=== PATIENT | female | born 1965 | race Caucasian/White ===

== ENCOUNTER → 2017-07-20 | Day surgery (SDC) | payer OTHER ==
[~2017-07-20] VITALS: Ht 165.1 cm; Wt 60.0 kg
[~2017-07-20] MED LIST: FENTANYL CITRATE INJ 50 MCG/1 ML 2 ML VIAL ONE; LIDOCAINE HCL 2% 2 ML VIAL (20MG/ML) ONE; ONDANSETRON INJ 2 MG/ML 2 ML VIAL ONE; PATIENT'S ALLERGY INFO NEEDS ENTERED SCH; PROPOFOL IV EMULSION 10 MG/ML 20 ML VIAL IV ONE; PRT/20 PO; SODIUM CHLORIDE 0.9% 500ML 500 ML IV ONE; SUCR1TAB29 PO
[2017-07-20 13:30] VITALS: Ht 165.1 cm; Wt 60.0 kg
[2017-07-20 13:44] VITALS: TEMP 36.9
--- NOTE | 2017-07-20 13:56 | Endo History and Physical ---
History & Physical Date of Service: Jul 20, 2017. Chief Complaint: Reflux Referring Physician: Ivis History of Present Illness 52 yo CF who presents for EGD secondary to GERD. Past Surgical History Hx Cardiac Surgery: No Hx Internal Defibrillator: No Hx Pacemaker: No Hx Abdominal Surgery: No Hx of Implantable Prosthesis: No Hx Post-Op Nausea and Vomiting: No Hx Cancer Surgery: No Hx Thoracic Surgery: No Hx Orthopedic: No Hx Urinary Tract Surgery: No Family History None Social History Smoking Status: Former Smoker Hx Substance Use: No Hx Alcohol Use: No Vital Signs Weight (Kilograms): 60 Height (Feet): 5 Height (Inches): 5 Physical Exam General Appearance: WD/WN, no apparent distress Respiratory/Chest: Auscultation: breath sounds normal Cardiovascular: Heart Auscultation: RRR Abdomen: Bowel Sounds: normal Inspection & Palpation: soft, non-distended, no tenderness, guarding & rebound Assessment and Plan Assessment: 52 yo CF who presents for EGD secondary to GERD. Plan: Proceed with EGD.
--- NOTE | 2017-07-20 14:35 | Discharge Instructions ---
Endoscopy Patient Instructions Date / Procedure(s) Performed Jul 20, 2017. EGD Allergy Information Coded Allergies: No Known Allergies (Unverified , 07/20/17) Discharge Date / Findings Jul 20, 2017. Severe Pyloric stenosis Severe Reflux esophagitis Medication Instructions OK to resume all medications today as prescribed Reported Home Medications Medications Dose Route/Sig Max Daily Dose Days Date Category Carafate (Sucralfate) 1 Gm Tab 1 Tab PO QID 30 07/20/17 Reported Protonix (Pantoprazole Sodium) 20 Mg Tab 20 Mg PO DAILY PRN 07/20/17 Reported Provider Instructions Activity Restrictions - No exercising or heavy lifting for 24 hours. - Do not drink alcohol the day of the procedure. - Do not drive a car or operate machinery until the day after the procedure. - Do not make any important decisions or sign important papers in 24 hours after the procedure. Following Day: - Return to full activity which may include returning to work/school. Diet Start your diet with liquids and light foods (jello, soup, juice, toast). Then eat your usual diet if not nauseated. Treatment For Common After Affects For mild abdominal pain, bloating, or excessive gas: - Rest - Eat lightly - Lie on right side Follow-Up Information Follow-up with Ivis as scheduled Anesthesia Information What You Should Know You have had a procedure that required some medicine to reduce anxiety and discomfort. This treatment is called moderate sedation. After receiving the treatment, you may be sleepy, but you will be able to breathe on your own. The effects of the treatment may last for several hours. Follow these instructions along with Activity/Diet recommendations noted above: * Do NOT do anything where dizziness or clumsiness would be dangerous. * Rest quietly at home today, then you can be up and about tomorrow. * Have a responsible person stay with you the rest of today. * You may have had an I.V. today. If so, you may take the dressing off later today. Recommendations Call your doctor if: * Trouble breathing * Continuous vomiting for more than 24 hours * Temperature above 101 degrees * Severe abdominal pain or bloating * Pain not relieved by pain medicine ordered * There is increased drainage or redness from any incision * A large amount of rectal bleeding greater than 2-3 tablespoons. (If you had a polyp/s removed or have hemorrhoids, a small amount of blood - from the rectum is to be expected.) * You have any unanswered questions or concerns. IN THE EVENT OF A SERIOUS EMERGENCY, GO TO THE NEAREST EMERGENCY ROOM Your discharge instructions were prepared by provider Omega Wise. Patient Instructions Signature Page Blanche Padilla Patient (or Guardian) Signature/Date: I have read and understand the instructions given to me by my caregivers. Caregiver/RN/Doctor Signature/Date: The above-named patient and/or guardian has received patient instructions on this date. + Original Patient Signature Page (only) stays with chart. Please make copy for patient.
--- NOTE | 2017-07-20 14:43 | GI REPORT ---
Procedure Date: 07/20/2017 2:16 PM Procedure: Upper GI endoscopy Indications: Gastro-esophageal reflux disease Medicines: Monitored Anesthesia Care Complications: No immediate complications. Estimated Blood Loss: Estimated blood loss: none. Procedure: Pre-Anesthesia Assessment: - Prior to the procedure, a History and Physical was performed, and patient medications and allergies were reviewed. The patient's tolerance of previous anesthesia was also reviewed. The risks and benefits of the procedure and the sedation options and risks were discussed with the patient. All questions were answered, and informed consent was obtained. Prior Anticoagulants: The patient has taken no previous anticoagulant or antiplatelet agents. ASA Grade Assessment: II - A patient with mild systemic disease. After reviewing the risks and benefits, the patient was deemed in satisfactory condition to undergo the procedure. After obtaining informed consent, the endoscope was passed under direct vision. Throughout the procedure, the patient's blood pressure, pulse, and oxygen saturations were monitored continuously. The scope was introduced through the mouth, and advanced to the second part of duodenum. The upper GI endoscopy was accomplished without difficulty. The patient tolerated the procedure well. Findings: LA Grade D (one or more mucosal breaks involving at least 75% of esophageal circumference) esophagitis with bleeding was found. A medium amount of food (residue) was found on the greater curvature of the stomach. A benign-appearing, intrinsic severe stenosis was found at the pylorus. This was non-traversed. Impression: - LA Grade D reflux esophagitis. - A medium amount of food (residue) in the stomach. - Gastric stenosis was found at the pylorus. - No specimens collected. Recommendation: - Clear liquid diet. - Continue present medications. - Perform a CT scan (computed tomography) of abdomen with contrast and pelvis with contrast tomorrow. - Repeat upper endoscopy for retreatment. - Return to primary care physician as previously scheduled. Omega Wise DO 07/20/2017 2:42:33 PM This report has been signed electronically. Note Initiated On: 07/20/2017 2:16 PM I attest to the content of the Intraoperative Record and orders documented therein, exceptions below
[2017-07-20 15:11] VITALS: BP 113/70; PULSE 64; O2SAT 97
--- NOTE | 2017-07-20 15:11 | Anesthesiology Progress Note ---
Anesthesia Post Op Note Date & Time Jul 20, 2017 at 15:11 Vital Signs Pain Intensity: 0 Vital Signs Past 12 Hours Date Time Temp Pulse Resp B/P (MAP) Pulse Ox O2 Delivery O2 Flow Rate FiO2 07/20/17 14:58 65 18 93/67 (76) 99 Room Air 07/20/17 14:43 84 18 112/65 (81) 98 Room Air 07/20/17 13:44 36.9 68 18 109/61 (77) 97 Room Air Notes Mental Status: alert / awake / arousable, participated in evaluation Pt Amnestic to Procedure: Yes Nausea / Vomiting: adequately controlled Pain: adequately controlled Airway Patency, RR, SpO2: stable & adequate BP & HR: stable & adequate Hydration State: stable & adequate Anesthetic Complications: no major complications apparent
== END | disposition home or self-care (01) ==
LOC: C.GI 12:47 → UNMERGE 12:47 → MERGE 12:47
PROVIDERS: ATTEND Internal Medicine
DX: K21.0 Gastro-esophageal reflux disease with esophagitis (principal); K31.1 Adult hypertrophic pyloric stenosis; Z87.891 Personal history of nicotine dependence

== ENCOUNTER → 2017-07-21 | Outpatient (CLI) | payer OTHER ==
[~2017-07-21] MED LIST changes: -FENTANYL CITRATE INJ 50 MCG/1 ML 2 ML VIAL ONE; -LIDOCAINE HCL 2% 2 ML VIAL (20MG/ML) ONE; -ONDANSETRON INJ 2 MG/ML 2 ML VIAL ONE; +OPTIRAY 320 IV PRN; +PANT40TA PO; -PATIENT'S ALLERGY INFO NEEDS ENTERED SCH; -PROPOFOL IV EMULSION 10 MG/ML 20 ML VIAL IV ONE; +RANI150T85 PO; -SODIUM CHLORIDE 0.9% 500ML 500 ML IV ONE
--- NOTE | 2017-07-21 15:03 | DIAGNOSTIC IMAGING REPORT ---
CT ABD/PELVIS IV AND ORAL CONT CLINICAL HISTORY: Reflux, vomiting, pyloric stenosis. Nausea. Abnormal EGD. COMPARISON STUDY: None. TECHNIQUE: Following the IV administration of 119 mL of Optiray-320, CT scan of the abdomen and pelvis was performed from the lung bases to the proximal femurs. Images are reviewed in the axial, sagittal, and coronal planes. IV contrast was administered without complication. A dose lowering technique was utilized adhering to the principles of ALARA. CT DOSE: 417.11 mGycm FINDINGS: Lower chest: There is a trace left pleural effusion. Liver: The contrast-enhanced liver is normal in size, contour, and attenuation. There is no intrahepatic biliary ductal dilatation. The hepatic veins and portal veins are patent. Gallbladder: Unremarkable. Spleen: Normal in size and attenuation. Pancreas: Unremarkable. Adrenal glands: Unremarkable. Kidneys: There is symmetric renal cortical enhancement. The kidneys are normal in size without hydronephrosis. Bowel: There are no transition zones indicate bowel obstruction. There is no acute diverticulitis. The appendix is not visualized with certainty. There are no findings to indicate acute appendicitis. There is a debris-filled stomach. There is wall thickening involving the gastric antrum and pyloris. The second and third portions of the duodenum are unremarkable in appearance. Peritoneum: There is no intraperitoneal free air or abdominal ascites. Vasculature: The abdominal aorta is normal in course and caliber. Adenopathy: None. Pelvic viscera: The bladder, and pelvic viscera are unremarkable. Skeletal structures: No destructive osseous lesions are seen. IMPRESSION: 1. Wall thickening involving the antrum by pylorus 2. Debris-filled stomach. This may indicate delayed gastric emptying or an element of gastric outlet obstruction 3. No evidence of small bowel or colonic obstruction 4. No evidence of free air 5. No evidence of adenopathy Electronically signed by: David Valiente M.D. 07/21/2017 3:01 PM Dictated Date/Time: 07/21/2017 2:53 PM
== END | disposition home or self-care (01) ==
LOC: MERGE 12:40 → C.CTS 14:04
PROVIDERS: ATTEND Internal Medicine
DX: K21.9 Gastro-esophageal reflux disease without esophagitis (principal); K31.1 Adult hypertrophic pyloric stenosis; R11.10 Vomiting, unspecified; R19.8 Other specified symptoms and signs involving the digestive system and abdomen

== ENCOUNTER 2017-07-22 08:57 | Day surgery (SDC) | payer OTHER ==
[~2017-07-22] VITALS: Ht 165.1 cm; Wt 60.0 kg
[~2017-07-22 08:57] MED LIST changes: +ATROPINE SULFATE 0.1 MG/ML 5ML SYR IV PRN; +EpHEDrine SULFATE INJ 50 MG/ML AMP IV PRN; +FENTANYL CITRATE INJ 50 MCG/1 ML 2 ML VIAL IV PRN; +ONDANSETRON INJ 2 MG/ML 2 ML VIAL IV PRN; -OPTIRAY 320 IV PRN; -PANT40TA PO; +PROMETHAZINE HCL INJ 12.5 MG in SODIUM CHLORIDE 0.9% 50ML 50 ML IV PRN; -RANI150T85 PO
[2017-07-22 09:10] VITALS: BP 110/57; PULSE 64; TEMP 36.7; O2SAT 100; Ht 165.1 cm; Wt 60.0 kg
[2017-07-22] MEDS ORDERED: NURSING VERBAL MED ORDER ONE (10:00)
[2017-07-22] MEDS ORDERED: LACTATED RINGER'S 1000ML 1,000 ML IV SCH (10:30)
[2017-07-22] MEDS ORDERED: SODIUM CHLORIDE 0.9% 500ML 500 ML IV ONE (10:37)
--- NOTE | 2017-07-22 10:37 | Endo History and Physical ---
History & Physical Date of Service: Jul 22, 2017. Chief Complaint: Abnormal CT scan of the Abdomen Pyloric stenosis Referring Physician: Dr. Langston History of Present Illness 52 yo CF who presents for EGD secondary to abnormal CT scan of the abdomen and pyloric stenosis. Past Surgical History Hx Cardiac Surgery: No Hx Internal Defibrillator: No Hx Pacemaker: No Hx Abdominal Surgery: Yes (appendectomy and tubal) Hx Post-Op Nausea and Vomiting: No Hx Cancer Surgery: No Hx Thoracic Surgery: No Hx Orthopedic: No Hx Urinary Tract Surgery: No Social History Smoking Status: Former Smoker Hx Substance Use: No Hx Alcohol Use: No Allergies Coded Allergies: No Known Allergies (Unverified , 07/22/17) Current Medications Reported Home Medications Medications Dose Route/Sig Max Daily Dose Days Date Category Carafate (Sucralfate) 1 Gm Tab 1 Tab PO QID 30 07/20/17 Reported Protonix (Pantoprazole Sodium) 20 Mg Tab 20 Mg PO DAILY PRN 07/20/17 Reported Vital Signs Weight (Kilograms): 60 Height (Feet): 5 Height (Inches): 5 Date Time Temp Pulse Resp B/P (MAP) Pulse Ox O2 Delivery O2 Flow Rate FiO2 07/22/17 09:10 36.7 64 18 110/57 (74) 100 Room Air Physical Exam General Appearance: WD/WN, no apparent distress Respiratory/Chest: Auscultation: breath sounds normal Cardiovascular: Heart Auscultation: RRR Abdomen: Bowel Sounds: normal Inspection & Palpation: soft, non-distended, no tenderness, guarding & rebound Assessment and Plan Assessment: 52 yo CF who presents for EGD secondary to abnormal CT scan of the abdomen and pyloric stenosis found on EGD 07/20/2017. Plan: Proceed with EGD.
[2017-07-22] MEDS ORDERED: ONDANSETRON INJ 2 MG/ML 2 ML VIAL ONE (10:38)
[2017-07-22] MEDS ORDERED: PROPOFOL IV EMULSION 10 MG/ML 20 ML VIAL IV ONE (10:38)
[2017-07-22] MEDS ORDERED: MIDAZOLAM HCL 1 MG/ML 2ML VIAL ONE (10:38)
[2017-07-22] MEDS ORDERED: ROCURONIUM BROMIDE 10 MG/ML 5 ML VIAL IV ONE (10:38)
[2017-07-22] MEDS ORDERED: FENTANYL CITRATE INJ 50 MCG/1 ML 2 ML VIAL ONE (10:38)
[2017-07-22] MEDS ORDERED: LIDOCAINE HCL 2% 2 ML VIAL (20MG/ML) ONE (10:38)
[2017-07-22] MEDS ORDERED: SUCCINYLCHOLINE CHLORIDE 20 MG/ML 10 ML VIAL IV ONE (10:38)
[2017-07-22] MEDS ORDERED: FLUMAZENIL 0.1 MG/1 ML 10 ML VIAL IV ONE (10:38)
[2017-07-22] MEDS ORDERED: PHENYLEPHRINE 100MCG/ML 5ML SYR ONE (11:23)
[2017-07-22] MEDS ORDERED: EpHEDrine SULFATE 50MG/5ML SYR ONE (11:37)
--- NOTE | 2017-07-22 11:42 | [facility] Post Operative Brief Note ---
Immediate Operative Summary Operative Date Jul 22, 2017. Pre-Operative Diagnosis Pyloric Stenosis Post-Operative Diagnosis Pyloric Stenosis, Severe esophogitis, Hiatal Hernia Procedure(s) Performed Esophagogastroduodenoscopy with pyloric dilation, Biopsies of the gastric antrum and duodenum Surgeon Dr. WiseFreight Engineer Surgeon(s) NONE Estimated Blood Loss 10 ml Findings 1) Severe esophagitis 2) Hiatal hernia-small 3) Gastritis with gastric antrum biopsies 4) Pyloric stenosis, s/p dilation to 13.5 mm 5) Duodenal biopsies Specimens per Endo staff Anesthesia General Complication(s) None Disposition Recovery Room / PACU
[2017-07-22] MEDS ORDERED: METOPROLOL TARTRATE 1 MG/ML VIAL ONE (11:58)
--- NOTE | 2017-07-22 12:16 | GI REPORT ---
Procedure Date: 07/22/2017 10:55 AM Procedure: Upper GI endoscopy Indications: For therapy of pyloric stenosis, Abnormal CT of the GI tract Medicines: Monitored Anesthesia Care Complications: No immediate complications. Estimated Blood Loss: Estimated blood loss: none. Procedure: Pre-Anesthesia Assessment: - Prior to the procedure, a History and Physical was performed, and patient medications and allergies were reviewed. The patient's tolerance of previous anesthesia was also reviewed. The risks and benefits of the procedure and the sedation options and risks were discussed with the patient. All questions were answered, and informed consent was obtained. Prior Anticoagulants: The patient has taken no previous anticoagulant or antiplatelet agents. ASA Grade Assessment: II - A patient with mild systemic disease. After reviewing the risks and benefits, the patient was deemed in satisfactory condition to undergo the procedure. After obtaining informed consent, the endoscope was passed under direct vision. Throughout the procedure, the patient's blood pressure, pulse, and oxygen saturations were monitored continuously. The Scope was introduced through the mouth, and advanced to the second part of duodenum. The upper GI endoscopy was accomplished without difficulty. The patient tolerated the procedure well. Findings: Severe esophagitis with bleeding was found. A small hiatal hernia was present. Localized moderate inflammation characterized by erythema was found in the gastric antrum. Biopsies were taken with a cold forceps for histology. A benign-appearing, intrinsic severe stenosis was found at the pylorus. This was non-traversed. A TTS dilator was passed through the scope. Dilation with an 8-9-10 mm, a 10-11-12 mm and a 12-13.5-15 mm pyloric balloon dilator was performed. The dilation site was examined and showed moderate improvement in luminal narrowing. The adult endoscope still would not pass through the pylorus, and the ultrathin scope was used to evaluate the duodenum. An acquired benign-appearing, intrinsic moderate stenosis was found in the duodenal bulb and was traversed. Biopsies for histology were taken with a cold forceps for evaluation of celiac disease. Impression: - Severe reflux esophagitis. - Small hiatal hernia. - Gastritis. Biopsied. - Gastric stenosis was found at the pylorus. Dilated. - Acquired duodenal stenosis. Biopsied. Recommendation: - Resume previous diet. - Continue present medications. - Await pathology results. - Repeat upper endoscopy in 2 weeks for retreatment. Omega Wise, DO 07/22/2017 12:15:33 PM This report has been signed electronically. Note Initiated On: 07/22/2017 10:55 AM I attest to the content of the Intraoperative Record and orders documented therein, exceptions below
--- NOTE | 2017-07-22 12:24 | Anesthesiology Progress Note ---
Anesthesia Post Op Note Date & Time Jul 22, 2017 at 12:23 Vital Signs Pain Intensity: 0 Vital Signs Past 12 Hours Date Time Temp Pulse Resp B/P (MAP) Pulse Ox O2 Delivery O2 Flow Rate FiO2 07/22/17 12:20 56 16 106/68 95 Room Air 07/22/17 12:10 60 16 103/65 98 Oxymask 7 07/22/17 11:52 36.1 87 16 100/71 98 Oxymask 7 07/22/17 09:10 36.7 64 18 110/57 (74) 100 Room Air Notes Mental Status: alert / awake / arousable, participated in evaluation Pt Amnestic to Procedure: Yes Nausea / Vomiting: adequately controlled Pain: adequately controlled Airway Patency, RR, SpO2: stable & adequate BP & HR: stable & adequate Hydration State: stable & adequate Anesthetic Complications: no major complications apparent
--- NOTE | 2017-07-22 12:38 | Discharge Instructions ---
Endoscopy Patient Instructions Date / Procedure(s) Performed Jul 22, 2017. EGD Allergy Information Coded Allergies: No Known Allergies (Unverified , 07/22/17) Discharge Date / Findings Jul 22, 2017. 1) Severe Reflux esophagitis 2) Hiatal hernia 3) Gastritis s/p biopsies 4) Pyloric stenosis s/p dilation 5) Duodenal biopsies Medication Instructions OK to resume all medications today as prescribed Reported Home Medications Medications Dose Route/Sig Max Daily Dose Days Date Category Carafate (Sucralfate) 1 Gm Tab 1 Tab PO QID 30 07/20/17 Reported Protonix (Pantoprazole Sodium) 20 Mg Tab 20 Mg PO DAILY PRN 07/20/17 Reported Provider Instructions Activity Restrictions - No exercising or heavy lifting for 24 hours. - Do not drink alcohol the day of the procedure. - Do not drive a car or operate machinery until the day after the procedure. - Do not make any important decisions or sign important papers in 24 hours after the procedure. Following Day: - Return to full activity which may include returning to work/school. Diet Start your diet with liquids and light foods (jello, soup, juice, toast). Then eat your usual diet if not nauseated. Treatment For Common After Affects For mild abdominal pain, bloating, or excessive gas: - Rest - Eat lightly - Lie on right side Follow-Up Information Follow-up in 2 weeks for repeat EGD with furhter dilation of pylorus. Anesthesia Information What You Should Know You have had a procedure that required some medicine to reduce anxiety and discomfort. This treatment is called moderate sedation. After receiving the treatment, you may be sleepy, but you will be able to breathe on your own. The effects of the treatment may last for several hours. Follow these instructions along with Activity/Diet recommendations noted above: * Do NOT do anything where dizziness or clumsiness would be dangerous. * Rest quietly at home today, then you can be up and about tomorrow. * Have a responsible person stay with you the rest of today. * You may have had an I.V. today. If so, you may take the dressing off later today. Recommendations Call your doctor if: * Trouble breathing * Continuous vomiting for more than 24 hours * Temperature above 101 degrees * Severe abdominal pain or bloating * Pain not relieved by pain medicine ordered * There is increased drainage or redness from any incision * A large amount of rectal bleeding greater than 2-3 tablespoons. (If you had a polyp/s removed or have hemorrhoids, a small amount of blood - from the rectum is to be expected.) * You have any unanswered questions or concerns. IN THE EVENT OF A SERIOUS EMERGENCY, GO TO THE NEAREST EMERGENCY ROOM Your discharge instructions were prepared by provider Omega Wise. Patient Instructions Signature Page Blanche Padilla Patient (or Guardian) Signature/Date: I have read and understand the instructions given to me by my caregivers. Caregiver/RN/Doctor Signature/Date: The above-named patient and/or guardian has received patient instructions on this date. + Original Patient Signature Page (only) stays with chart. Please make copy for patient.
[2017-07-22 12:40] VITALS: BP 109/63; PULSE 48; TEMP 36.5; O2SAT 95
[2017-07-22 13:10] VITALS: BP 117/56; PULSE 57; TEMP 36.3; O2SAT 93
[2017-07-26] MEDS ORDERED: PANT40TA PO (14:07)
[2017-07-26] MEDS ORDERED: RANI150T85 PO (14:07)
== END 2017-07-22 12:35 | disposition home or self-care (01) ==
LOC: C.ACU 08:57
PROVIDERS: ATTEND Internal Medicine
DX: K31.1 Adult hypertrophic pyloric stenosis (principal); K21.0 Gastro-esophageal reflux disease with esophagitis; K44.9 Diaphragmatic hernia without obstruction or gangrene; K29.70 Gastritis, unspecified, without bleeding; R93.5 Abnormal findings on diagnostic imaging of other abdominal regions, including retroperitoneum; R13.10 Dysphagia, unspecified; Z90.89 Acquired absence of other organs; Z98.51 Tubal ligation status; Z87.891 Personal history of nicotine dependence

== ENCOUNTER → 2017-08-09 | Day surgery (SDC) | payer OTHER ==
[2017-07-26 14:07] VITALS: Ht 165.1 cm; Wt 57.7 kg
[~2017-08-09] VITALS: Ht 165.1 cm; Wt 57.7 kg
[~2017-08-09] MED LIST changes: +AMX500 PO; -ATROPINE SULFATE 0.1 MG/ML 5ML SYR IV PRN; +CLAR500T38 PO; -EpHEDrine SULFATE INJ 50 MG/ML AMP IV PRN; -FENTANYL CITRATE INJ 50 MCG/1 ML 2 ML VIAL IV PRN; +LIDOCAINE HCL 2% 2 ML VIAL (20MG/ML) ONE; -ONDANSETRON INJ 2 MG/ML 2 ML VIAL IV PRN; +PANT40TA PO; -PROMETHAZINE HCL INJ 12.5 MG in SODIUM CHLORIDE 0.9% 50ML 50 ML IV PRN; +PROPOFOL IV EMULSION 10 MG/ML 20 ML VIAL IV ONE; -PRT/20 PO; +RANI150T85 PO; +SODIUM CHLORIDE 0.9% 500ML 500 ML IV ONE
[2017-08-09 10:00] VITALS: TEMP 36.2
--- NOTE | 2017-08-09 10:47 | Endo History and Physical ---
History & Physical Date of Service: Aug 09, 2017. Chief Complaint: pyloric stenosis Referring Physician: Dr. Enzo Langston History of Present Illness 52 yo CF who presents for EGD secondary to pyloric stenosis Past Surgical History Hx Cardiac Surgery: No Hx Internal Defibrillator: No Hx Pacemaker: No Hx Abdominal Surgery: Yes (APPY, TUBAL LIGATION) Hx of Implantable Prosthesis: No Hx Post-Op Nausea and Vomiting: No Hx Cancer Surgery: No Hx Thoracic Surgery: No Hx Orthopedic: No Hx Urinary Tract Surgery: No Family History None Social History Smoking Status: Former Smoker Hx Substance Use: No Hx Alcohol Use: No Allergies Coded Allergies: No Known Allergies (Verified , 08/09/17) Current Medications Reported Home Medications Medications Dose Route/Sig Max Daily Dose Days Date Category Biaxin (Clarithromycin) 500 Mg Tab 1 Tab PO BID 7 08/09/17 Reported Amoxicillin 500 Mg Cap 1,000 Mg PO BID 08/09/17 Reported Protonix (Pantoprazole Sodium) 40 Mg Tab 40 Mg PO BID 07/26/17 Reported Zantac (Ranitidine HCl) 150 Mg Tab 150 Mg PO DAILY PRN 07/26/17 Reported Carafate (Sucralfate) 1 Gm Tab 1 Tab PO QID 30 07/20/17 Reported Vital Signs Weight (Kilograms): 57.73 Height (Feet): 5 Height (Inches): 5 Date Time Temp Pulse Resp B/P (MAP) Pulse Ox O2 Delivery O2 Flow Rate FiO2 08/09/17 10:00 36.2 64 20 106/60 (75) 100 Room Air Physical Exam General Appearance: WD/WN, no apparent distress Respiratory/Chest: Auscultation: breath sounds normal Cardiovascular: Heart Auscultation: RRR Abdomen: Bowel Sounds: normal Inspection & Palpation: soft, non-distended, no tenderness, guarding & rebound Assessment and Plan Assessment: 52 yo CF who presents for EGD secondary to pyloric stenosis Plan: Proceed with EGD.
--- NOTE | 2017-08-09 11:14 | GI REPORT ---
Procedure Date: 08/09/2017 10:32 AM Procedure: Upper GI endoscopy Indications: Pyloric stenosis Medicines: Monitored Anesthesia Care Complications: No immediate complications. Estimated Blood Loss: Estimated blood loss: none. Procedure: Pre-Anesthesia Assessment: - Prior to the procedure, a History and Physical was performed, and patient medications and allergies were reviewed. The patient's tolerance of previous anesthesia was also reviewed. The risks and benefits of the procedure and the sedation options and risks were discussed with the patient. All questions were answered, and informed consent was obtained. Prior Anticoagulants: The patient has taken no previous anticoagulant or antiplatelet agents. ASA Grade Assessment: II - A patient with mild systemic disease. After reviewing the risks and benefits, the patient was deemed in satisfactory condition to undergo the procedure. After obtaining informed consent, the endoscope was passed under direct vision. Throughout the procedure, the patient's blood pressure, pulse, and oxygen saturations were monitored continuously. The scope was introduced through the mouth, with the intention of advancing to the duodenum. The scope was advanced to the pylorus before the procedure was aborted. Medications were given. The upper GI endoscopy was accomplished without difficulty. The patient tolerated the procedure fairly well. Findings: LA Grade D (one or more mucosal breaks involving at least 75% of esophageal circumference) esophagitis with no bleeding was found. A benign-appearing, intrinsic severe stenosis was found at the pylorus. This was non-traversed. A large amount of food (residue) was found on the greater curvature of the stomach. Impression: - LA Grade D reflux esophagitis. - Gastric stenosis was found at the pylorus. - A large amount of food (residue) in the stomach. - No specimens collected. Recommendation: - Full liquid diet. - Continue present medications. - Repeat upper endoscopy at appointment to be scheduled retained gastric contents. - Return to primary care physician as previously scheduled. Omega Wise DO 08/09/2017 11:14:07 AM This report has been signed electronically. Note Initiated On: 08/09/2017 10:32 AM I attest to the content of the Intraoperative Record and orders documented therein, exceptions below
--- NOTE | 2017-08-09 11:15 | Discharge Instructions ---
Endoscopy Patient Instructions Date / Procedure(s) Performed Aug 09, 2017. EGD Allergy Information Coded Allergies: No Known Allergies (Verified , 08/09/17) Discharge Date / Findings Aug 09, 2017. Severe pyloric stenosis Retained gastric contents Medication Instructions OK to resume all medications today as prescribed Reported Home Medications Medications Dose Route/Sig Max Daily Dose Days Date Category Biaxin (Clarithromycin) 500 Mg Tab 1 Tab PO BID 7 08/09/17 Reported Amoxicillin 500 Mg Cap 1,000 Mg PO BID 08/09/17 Reported Protonix (Pantoprazole Sodium) 40 Mg Tab 40 Mg PO BID 07/26/17 Reported Zantac (Ranitidine HCl) 150 Mg Tab 150 Mg PO DAILY PRN 07/26/17 Reported Carafate (Sucralfate) 1 Gm Tab 1 Tab PO QID 30 07/20/17 Reported Provider Instructions Activity Restrictions - No exercising or heavy lifting for 24 hours. - Do not drink alcohol the day of the procedure. - Do not drive a car or operate machinery until the day after the procedure. - Do not make any important decisions or sign important papers in 24 hours after the procedure. Following Day: - Return to full activity which may include returning to work/school. Diet Start your diet with liquids and light foods (jello, soup, juice, toast). Then advance to full liquid diet as tolerated. Treatment For Common After Affects For mild abdominal pain, bloating, or excessive gas: - Rest - Eat lightly - Lie on right side Follow-Up Information Follow-up with Dr. Enzo Langston as scheduled Anesthesia Information What You Should Know You have had a procedure that required some medicine to reduce anxiety and discomfort. This treatment is called moderate sedation. After receiving the treatment, you may be sleepy, but you will be able to breathe on your own. The effects of the treatment may last for several hours. Follow these instructions along with Activity/Diet recommendations noted above: * Do NOT do anything where dizziness or clumsiness would be dangerous. * Rest quietly at home today, then you can be up and about tomorrow. * Have a responsible person stay with you the rest of today. * You may have had an I.V. today. If so, you may take the dressing off later today. Recommendations Call your doctor if: * Trouble breathing * Continuous vomiting for more than 24 hours * Temperature above 101 degrees * Severe abdominal pain or bloating * Pain not relieved by pain medicine ordered * There is increased drainage or redness from any incision * A large amount of rectal bleeding greater than 2-3 tablespoons. (If you had a polyp/s removed or have hemorrhoids, a small amount of blood - from the rectum is to be expected.) * You have any unanswered questions or concerns. IN THE EVENT OF A SERIOUS EMERGENCY, GO TO THE NEAREST EMERGENCY ROOM Your discharge instructions were prepared by provider Omega Wise. Patient Instructions Signature Page Blanche Padilla Patient (or Guardian) Signature/Date: I have read and understand the instructions given to me by my caregivers. Caregiver/RN/Doctor Signature/Date: The above-named patient and/or guardian has received patient instructions on this date. + Original Patient Signature Page (only) stays with chart. Please make copy for patient.
[2017-08-09 11:42] VITALS: BP 106/56; PULSE 64; O2SAT 98
--- NOTE | 2017-08-09 13:01 | Anesthesiology Progress Note ---
Anesthesia Post Op Note Date & Time Aug 09, 2017 at 13:00 Vital Signs Pain Intensity: 0 Vital Signs Past 12 Hours Date Time Temp Pulse Resp B/P (MAP) Pulse Ox O2 Delivery O2 Flow Rate FiO2 08/09/17 11:42 64 16 106/56 (73) 98 Room Air 08/09/17 11:27 67 16 105/66 (79) 97 Room Air 08/09/17 11:12 66 16 98/57 (71) 96 Room Air 08/09/17 10:00 36.2 64 20 106/60 (75) 100 Room Air Notes Mental Status: alert / awake / arousable, participated in evaluation Pt Amnestic to Procedure: Yes Nausea / Vomiting: adequately controlled Pain: adequately controlled Airway Patency, RR, SpO2: stable & adequate BP & HR: stable & adequate Hydration State: stable & adequate Anesthetic Complications: no major complications apparent
== END | disposition home or self-care (01) ==
LOC: C.GI 09:29
PROVIDERS: ATTEND Internal Medicine
DX: Q40.0 Congenital hypertrophic pyloric stenosis (principal); K21.0 Gastro-esophageal reflux disease with esophagitis; Z90.49 Acquired absence of other specified parts of digestive tract; Z87.891 Personal history of nicotine dependence

== ENCOUNTER 2017-08-19 06:45 | Day surgery (SDC) | payer OTHER ==
[~2017-08-19] VITALS: Ht 165.1 cm; Wt 57.7 kg
[~2017-08-19 06:45] MED LIST changes: +LACTATED RINGER'S 1000ML 1,000 ML IV SCH; -LIDOCAINE HCL 2% 2 ML VIAL (20MG/ML) ONE; -PROPOFOL IV EMULSION 10 MG/ML 20 ML VIAL IV ONE; -SODIUM CHLORIDE 0.9% 500ML 500 ML IV ONE
[2017-08-19] MEDS ORDERED: LIDOCAINE HCL 2% 2 ML VIAL (20MG/ML) ONE (06:58)
[2017-08-19] MEDS ORDERED: EpHEDrine SULFATE INJ 50 MG/ML AMP ONE (06:58)
[2017-08-19] MEDS ORDERED: DEXAMETHASONE SOD INJ 4 MG/ML VIAL ONE (06:58)
[2017-08-19] MEDS ORDERED: GLYCOPYRROLATE INJ 0.2 MG/ML VIAL ONE (06:58)
[2017-08-19] MEDS ORDERED: ONDANSETRON INJ 2 MG/ML 2 ML VIAL ONE (06:58)
[2017-08-19] MEDS ORDERED: PHENYLEPHRINE HCL INJ 10 MG/ML VIAL ONE (06:58)
[2017-08-19] MEDS ORDERED: NEOSTIGMINE METHYLSULFATE 5 MG/5 ML SYR ONE (06:58)
[2017-08-19] MEDS ORDERED: SUCCINYLCHOLINE CHLORIDE 20 MG/ML 10 ML VIAL IV ONE (06:58)
[2017-08-19] MEDS ORDERED: PROPOFOL IV EMULSION 10 MG/ML 20 ML VIAL IV ONE (06:58)
[2017-08-19] MEDS ORDERED: FENTANYL CITRATE INJ 50 MCG/1 ML 2 ML VIAL ONE (06:59)
[2017-08-19] MEDS ORDERED: MIDAZOLAM HCL 1 MG/ML 2ML VIAL ONE (06:59)
[2017-08-19 07:01] VITALS: BP 115/67; PULSE 70; TEMP 36.6; O2SAT 96; Ht 165.1 cm; Wt 57.7 kg
--- NOTE | 2017-08-19 07:29 | Endo History and Physical ---
History & Physical Date of Service: Aug 19, 2017. Chief Complaint: Pyloric stenosis, GERD, Vomiting Referring Physician: Dr. Langston History of Present Illness 52 yo CF who presents for EGD with dilation of pyloric stenosis. Her symptoms began approximately 3 months ago with GERD and intermittent vomiting. They subsequently progressed and she had vomiting following each meal, and a greater than 20 lb. weight loss. She underwent EGD on 07/20, and had retained gastric contents secondary to pyloric stenosis. Repeat EGD on 07/22 revealed severe pyloric stenosis, and she did undergo dilation of her pylorus. Biopsies of her gastric antrum revealed H. pylori. infection, and she completed a two week course of therapy. She returned for repeat EGD with dilation of her pylorus on 08/09, however, she had a large amount of retained gastric contents. She was subsequently scheduled to undergo EGD with pyloric dilation in the OR today. She continues to complain of severe GERD, nausea, vomiting, and an additional 5 lb. weight loss. Past Medical History Gastrointestinal Disorder GERD Pyloric stenosis Weight loss, unintentional Vomiting Past Surgical History Hx Cardiac Surgery: No Hx Internal Defibrillator: No Hx Pacemaker: No Hx Abdominal Surgery: Yes (APPY, TUBAL LIGATION) Hx Post-Op Nausea and Vomiting: No Hx Cancer Surgery: No Hx Thoracic Surgery: No Hx Orthopedic: No Hx Urinary Tract Surgery: No Family History None Social History Smoking Status: Former Smoker Hx Substance Use: No Hx Alcohol Use: No Allergies Coded Allergies: No Known Allergies (Verified , 08/19/17) Current Medications Reported Home Medications Medications Dose Route/Sig Max Daily Dose Days Date Category Protonix (Pantoprazole Sodium) 40 Mg Tab 40 Mg PO BID 07/26/17 Reported Zantac (Ranitidine HCl) 150 Mg Tab 150 Mg PO DAILY PRN 07/26/17 Reported Carafate (Sucralfate) 1 Gm Tab 1 Tab PO QID 30 07/20/17 Reported Vital Signs Weight (Kilograms): 57.7 Height (Feet): 5 Height (Inches): 5 Date Time Temp Pulse Resp B/P (MAP) Pulse Ox O2 Delivery O2 Flow Rate FiO2 08/19/17 07:01 36.6 70 18 115/67 (83) 96 Room Air Physical Exam General Appearance: no apparent distress, + thin Respiratory/Chest: Respiratory effort: no dyspnea, good air movement Auscultation: breath sounds normal, no wheezing Cardiovascular: Heart Auscultation: RRR Abdomen: Bowel Sounds: normal Inspection & Palpation: soft Liver: non-tender Hernia: none palpable Assessment and Plan Assessment: 52 yo CF who presents for EGD with dilation of pylorus secondary to pyloric stenosis, GERD, Vomiting and weight loss. Plan: Proceed with EGD and dilation of pylorus.
[2017-08-19] MEDS ORDERED: SODIUM CHLORIDE 0.9% 500ML 500 ML IV ONE (07:45)
--- NOTE | 2017-08-19 08:06 | [facility] Operative Report ---
Operative Report Operative Date Aug 19, 2017. Pre-Operative Diagnosis Pyloric Stenosis Post-Operative Diagnosis 1) Pyloris stenosis 2) Retained gastric contents Procedure(s) Performed 1) Dilation of pyloric stenosis 2) Gastric antrum biopsies Surgeon Dr. Duff Product Control And Logistics Analyst Surgeon(s) Elaine Hearn and Erin Cowan Estimated Blood Loss 10ml Findings Pyloric stenosis Retained gastric contents Specimens All specimens handled by endoscopy staff. Complication(s) None Disposition Recovery Room / PACU Indications Pyloric stenosis GERD Vomiting Weight loss Description of Procedure EGD with dilation of pyloric stenosis and gastric antrum biopsies I attest to the content of the Intraoperative Record and any orders documented therein. Any exceptions are noted below.
[2017-08-19] MEDS ORDERED: PHENYLEPHRINE 100MCG/ML 5ML SYR ONE (08:13)
--- NOTE | 2017-08-19 08:17 | Discharge Instructions ---
Endoscopy Patient Instructions Date / Procedure(s) Performed Aug 19, 2017. EGD Allergy Information Coded Allergies: No Known Allergies (Verified , 08/19/17) Discharge Date / Findings Aug 19, 2017. Pyloric stenosis s/p dilation Retained gastric contents Biopsies from gastric antrum Medication Instructions OK to resume all medications today as prescribed Reported Home Medications Medications Dose Route/Sig Max Daily Dose Days Date Category Protonix (Pantoprazole Sodium) 40 Mg Tab 40 Mg PO BID 07/26/17 Reported Zantac (Ranitidine HCl) 150 Mg Tab 150 Mg PO DAILY PRN 07/26/17 Reported Carafate (Sucralfate) 1 Gm Tab 1 Tab PO QID 30 07/20/17 Reported Provider Instructions Activity Restrictions - No exercising or heavy lifting for 24 hours. - Do not drink alcohol the day of the procedure. - Do not drive a car or operate machinery until the day after the procedure. - Do not make any important decisions or sign important papers in 24 hours after the procedure. Following Day: - Return to full activity which may include returning to work/school. Diet Start your diet with liquids and light foods (jello, soup, juice, toast). Then eat your usual diet if not nauseated. Treatment For Common After Affects For mild abdominal pain, bloating, or excessive gas: - Rest - Eat lightly - Lie on right side Follow-Up Information Follow-up with as scheduled Anesthesia Information What You Should Know You have had a procedure that required some medicine to reduce anxiety and discomfort. This treatment is called moderate sedation. After receiving the treatment, you may be sleepy, but you will be able to breathe on your own. The effects of the treatment may last for several hours. Follow these instructions along with Activity/Diet recommendations noted above: * Do NOT do anything where dizziness or clumsiness would be dangerous. * Rest quietly at home today, then you can be up and about tomorrow. * Have a responsible person stay with you the rest of today. * You may have had an I.V. today. If so, you may take the dressing off later today. Recommendations Call your doctor if: * Trouble breathing * Continuous vomiting for more than 24 hours * Temperature above 101 degrees * Severe abdominal pain or bloating * Pain not relieved by pain medicine ordered * There is increased drainage or redness from any incision * A large amount of rectal bleeding greater than 2-3 tablespoons. (If you had a polyp/s removed or have hemorrhoids, a small amount of blood - from the rectum is to be expected.) * You have any unanswered questions or concerns. IN THE EVENT OF A SERIOUS EMERGENCY, GO TO THE NEAREST EMERGENCY ROOM Your discharge instructions were prepared by provider Omega Wise. Patient Instructions Signature Page Blanche Padilla Patient (or Guardian) Signature/Date: I have read and understand the instructions given to me by my caregivers. Caregiver/RN/Doctor Signature/Date: The above-named patient and/or guardian has received patient instructions on this date. + Original Patient Signature Page (only) stays with chart. Please make copy for patient.
--- NOTE | 2017-08-19 08:32 | GI REPORT ---
Procedure Date: 08/19/2017 7:35 AM Procedure: Upper GI endoscopy Indications: Gastro-esophageal reflux disease, For therapy of pyloric stenosis, Vomiting, Weight loss Medicines: General Anesthesia Complications: No immediate complications. Estimated Blood Loss: Estimated blood loss: none. Procedure: Pre-Anesthesia Assessment: - Prior to the procedure, a History and Physical was performed, and patient medications and allergies were reviewed. The patient's tolerance of previous anesthesia was also reviewed. The risks and benefits of the procedure and the sedation options and risks were discussed with the patient. All questions were answered, and informed consent was obtained. Prior Anticoagulants: The patient has taken no previous anticoagulant or antiplatelet agents. ASA Grade Assessment: II - A patient with mild systemic disease. After reviewing the risks and benefits, the patient was deemed in satisfactory condition to undergo the procedure. After obtaining informed consent, the endoscope was passed under direct vision. Throughout the procedure, the patient's blood pressure, pulse, and oxygen saturations were monitored continuously. The Scope was introduced through the mouth, and advanced to the second part of duodenum. The upper GI endoscopy was accomplished without difficulty. The patient tolerated the procedure well. Findings: LA Grade D (one or more mucosal breaks involving at least 75% of esophageal circumference) esophagitis with no bleeding was found. Localized mildly erythematous mucosa without bleeding was found in the gastric antrum. Biopsies were taken with a cold forceps for histology. A medium amount of food (residue) was found in the gastric fundus and on the greater curvature of the stomach. A benign-appearing, intrinsic severe stenosis was found at the pylorus. This was traversed following dilation. A TTS dilator was passed through the scope. Dilation with a 10-11-12 mm and a 12-13.5-15 mm pyloric balloon dilator was performed. The dilation site was examined and showed moderate improvement in luminal narrowing. The examined duodenum was normal. Impression: - LA Grade D reflux esophagitis. - Erythematous mucosa in the antrum. Biopsied. - A medium amount of food (residue) in the stomach. - Gastric stenosis was found at the pylorus. Dilated. - Normal examined duodenum. Recommendation: - Resume previous diet. - Continue present medications. - Await pathology results. - Repeat upper endoscopy in 2 weeks for retreatment. - Return to GI clinic as previously scheduled. Omega Wise, 08/19/2017 8:32:20 AM This report has been signed electronically. Note Initiated On: 08/19/2017 7:35 AM I attest to the content of the Intraoperative Record and orders documented therein, exceptions below
--- NOTE | 2017-08-19 08:42 | Anesthesiology Progress Note ---
Anesthesia Post Op Note Date & Time Aug 19, 2017 at 08:42 Vital Signs Pain Intensity: 0 Vital Signs Past 12 Hours Date Time Temp Pulse Resp B/P (MAP) Pulse Ox O2 Delivery O2 Flow Rate FiO2 08/19/17 08:35 71 16 98/54 98 Room Air 08/19/17 08:25 76 18 105/70 100 Oxymask 10 08/19/17 08:17 73 20 92/46 97 Oxymask 10 08/19/17 08:15 36.6 76 18 86/48 96 Oxymask 10 08/19/17 07:01 36.6 70 18 115/67 (83) 96 Room Air Notes Mental Status: alert / awake / arousable, participated in evaluation Pt Amnestic to Procedure: Yes Nausea / Vomiting: adequately controlled Pain: adequately controlled Airway Patency, RR, SpO2: stable & adequate BP & HR: stable & adequate Hydration State: stable & adequate Anesthetic Complications: no major complications apparent
[2017-08-19] MEDS ORDERED: EpHEDrine SULFATE INJ 50 MG/ML AMP IV PRN (08:45)
[2017-08-19] MEDS ORDERED: ATROPINE SULFATE 0.1 MG/ML 5ML SYR IV PRN (08:45)
[2017-08-19] MEDS ORDERED: ONDANSETRON INJ 2 MG/ML 2 ML VIAL IV PRN (08:45)
[2017-08-19 09:00] VITALS: BP 102/53; PULSE 64; TEMP 36.5; O2SAT 94
[2017-08-19 09:30] VITALS: BP 104/52; PULSE 59; TEMP 36.5; O2SAT 97
== END 2017-08-19 09:38 | disposition home or self-care (01) ==
LOC: C.ACU 06:45
PROVIDERS: ATTEND Internal Medicine
DX: K31.1 Adult hypertrophic pyloric stenosis (principal); K21.0 Gastro-esophageal reflux disease with esophagitis; R11.10 Vomiting, unspecified; Z90.89 Acquired absence of other organs; Z98.51 Tubal ligation status; Z87.891 Personal history of nicotine dependence

== ENCOUNTER → 2017-09-05 | Day surgery (SDC) | payer OTHER ==
[2017-09-02 12:50] VITALS: BMI 21.0
[~2017-09-05] VITALS: Ht 165.1 cm; Wt 57.7 kg
[~2017-09-05] MED LIST changes: -AMX500 PO; +ATROPINE SULFATE 0.1 MG/ML 5ML SYR IV PRN; -CLAR500T38 PO; +DEXAMETHASONE SOD INJ 4 MG/ML VIAL ONE; +EpHEDrine SULFATE INJ 50 MG/ML AMP IV PRN; +FENTANYL CITRATE INJ 50 MCG/1 ML 2 ML VIAL IV PRN; +FENTANYL CITRATE INJ 50 MCG/1 ML 2 ML VIAL ONE; -LACTATED RINGER'S 1000ML 1,000 ML IV SCH; +LIDOCAINE HCL 2% 2 ML VIAL (20MG/ML) ONE; +ONDANSETRON INJ 2 MG/ML 2 ML VIAL IV PRN; +ONDANSETRON INJ 2 MG/ML 2 ML VIAL ONE; +PROPOFOL IV EMULSION 10 MG/ML 20 ML VIAL IV ONE; +ROCURONIUM BROMIDE 10 MG/ML 5 ML VIAL IV ONE; +SODIUM CHLORIDE 0.9% 500ML 500 ML IV ONE; +SUCCINYLCHOLINE CHLORIDE 20 MG/ML 10 ML VIAL IV ONE
[2017-09-05 05:52] VITALS: BP 109/55; PULSE 63; TEMP 36.8; O2SAT 98; Ht 165.1 cm; Wt 57.7 kg
--- NOTE | 2017-09-05 07:25 | Endo History and Physical ---
History & Physical Date of Service: Sep 05, 2017. Chief Complaint: Pyloric stenosis secondary to PUD for Dilation Referring Physician: Dr. Langston History of Present Illness Patient presents for EGD secondary to pyloric stenosis secondary to PUD for dilation. This is her third pyloric dilation, and she does note considerable improvement following her last dilation. She has completed therapy for H. pylori, which was found on biopsy at time of her previous EGD. She states that she has not had any abdominal pain, and states that her GERD symptoms and nausea with vomiting have improved since her last EGD. She has no further complaints. Past Medical History Gastrointestinal Disorder PUD H. pylori infection GERD Pyloric stenosis Past Surgical History Hx Cardiac Surgery: No Hx Internal Defibrillator: No Hx Pacemaker: No Hx Abdominal Surgery: Yes (APPENDECTOMY, TUBAL LIGATION) Hx Post-Op Nausea and Vomiting: No Hx Cancer Surgery: No Hx Thoracic Surgery: No Hx Orthopedic: No Hx Urinary Tract Surgery: No Family History None Social History Smoking Status: Former Smoker Hx Substance Use: No Hx Alcohol Use: No Allergies Coded Allergies: No Known Allergies (Verified , 09/05/17) Current Medications Reported Home Medications Medications Dose Route/Sig Max Daily Dose Days Date Category Protonix (Pantoprazole Sodium) 40 Mg Tab 40 Mg PO BID 07/26/17 Reported Zantac (Ranitidine HCl) 150 Mg Tab 150 Mg PO DAILY PRN 07/26/17 Reported Carafate (Sucralfate) 1 Gm Tab 1 Tab PO QID 30 07/20/17 Reported Vital Signs Weight (Kilograms): 57.7 Height (Feet): 5 Height (Inches): 5 Date Time Temp Pulse Resp B/P (MAP) Pulse Ox O2 Delivery O2 Flow Rate FiO2 09/05/17 05:52 36.8 63 16 109/55 (73) 98 Room Air Review of Systems Respiratory: No cough, No sputum, No shortness of breath Cardiovascular: No chest pain Abdomen: No pain, No nausea, No vomiting, No diarrhea, No GI bleeding Physical Exam General Appearance: WD/WN, no apparent distress Respiratory/Chest: Auscultation: breath sounds normal Cardiovascular: Heart Auscultation: RRR Abdomen: Bowel Sounds: normal Inspection & Palpation: soft, non-distended, no tenderness, guarding & rebound Assessment and Plan Assessment: 52 yo CF who presents for EGD with dilation of pyloric stenosis. Plan: Proceed with EGD with dilation of pylorus.
--- NOTE | 2017-09-05 08:08 | GI REPORT ---
Procedure Date: 09/05/2017 7:30 AM Procedure: Upper GI endoscopy Indications: For therapy of pyloric stenosis Medicines: Monitored Anesthesia Care Complications: No immediate complications. Estimated Blood Loss: Estimated blood loss: none. Procedure: Pre-Anesthesia Assessment: - Prior to the procedure, a History and Physical was performed, and patient medications and allergies were reviewed. The patient's tolerance of previous anesthesia was also reviewed. The risks and benefits of the procedure and the sedation options and risks were discussed with the patient. All questions were answered, and informed consent was obtained. Prior Anticoagulants: The patient has taken no previous anticoagulant or antiplatelet agents. ASA Grade Assessment: II - A patient with mild systemic disease. After reviewing the risks and benefits, the patient was deemed in satisfactory condition to undergo the procedure. After obtaining informed consent, the endoscope was passed under direct vision. Throughout the procedure, the patient's blood pressure, pulse, and oxygen saturations were monitored continuously. The Scope was introduced through the mouth, and advanced to the second part of duodenum. The upper GI endoscopy was accomplished without difficulty. The patient tolerated the procedure well. Findings: Mildly severe esophagitis with no bleeding was found. A benign-appearing, intrinsic moderate stenosis was found at the pylorus. This was non-traversed. A TTS dilator was passed through the scope. Dilation with a 12-13.5-15 mm pyloric balloon dilator was performed. The dilation site was examined and showed moderate improvement in luminal narrowing. The pylorus was easily traversed following dilation. The examined duodenum was normal. Impression: - Mildly severe erosive esophagitis. - Gastric stenosis was found at the pylorus. Dilated. - Normal examined duodenum. - No specimens collected. Recommendation: - Resume previous diet. - Continue present medications. - Repeat upper endoscopy in 3 weeks for retreatment. - Return to GI office as previously scheduled. Omega Wise DO 09/05/2017 8:07:32 AM This report has been signed electronically. Note Initiated On: 09/05/2017 7:30 AM I attest to the content of the Intraoperative Record and orders documented therein, exceptions below
--- NOTE | 2017-09-05 08:29 | Anesthesiology Progress Note ---
Anesthesia Post Op Note Date & Time Sep 05, 2017 at 08:29 Vital Signs Pain Intensity: 0 Vital Signs Past 12 Hours Date Time Temp Pulse Resp B/P (MAP) Pulse Ox O2 Delivery O2 Flow Rate FiO2 09/05/17 08:20 69 18 102/62 100 Nasal Cannula 2 09/05/17 08:10 36.0 91 14 108/72 99 Nasal Cannula 2 09/05/17 05:52 36.8 63 16 109/55 (73) 98 Room Air Notes Mental Status: alert / awake / arousable, participated in evaluation Pt Amnestic to Procedure: Yes Nausea / Vomiting: adequately controlled Pain: adequately controlled Airway Patency, RR, SpO2: stable & adequate BP & HR: stable & adequate Hydration State: stable & adequate Anesthetic Complications: no major complications apparent
--- NOTE | 2017-09-05 08:34 | Discharge Instructions ---
Endoscopy Patient Instructions Date / Procedure(s) Performed Sep 05, 2017. Colonoscopy Allergy Information Coded Allergies: No Known Allergies (Verified , 09/05/17) Discharge Date / Findings Sep 05, 2017. Pyloric stenosis s/p dilation Esophagitis Medication Instructions OK to resume all medications today as prescribed Reported Home Medications Medications Dose Route/Sig Max Daily Dose Days Date Category Protonix (Pantoprazole Sodium) 40 Mg Tab 40 Mg PO BID 07/26/17 Reported Zantac (Ranitidine HCl) 150 Mg Tab 150 Mg PO DAILY PRN 07/26/17 Reported Carafate (Sucralfate) 1 Gm Tab 1 Tab PO QID 30 07/20/17 Reported Provider Instructions Activity Restrictions - No exercising or heavy lifting for 24 hours. - Do not drink alcohol the day of the procedure. - Do not drive a car or operate machinery until the day after the procedure. - Do not make any important decisions or sign important papers in 24 hours after the procedure. Following Day: - Return to full activity which may include returning to work/school. Diet Start your diet with liquids and light foods (jello, soup, juice, toast). Then eat your usual diet if not nauseated. Treatment For Common After Affects For mild abdominal pain, bloating, or excessive gas: - Rest - Eat lightly - Lie on right side Follow-Up Information Follow-up with as scheduled Anesthesia Information What You Should Know You have had a procedure that required some medicine to reduce anxiety and discomfort. This treatment is called moderate sedation. After receiving the treatment, you may be sleepy, but you will be able to breathe on your own. The effects of the treatment may last for several hours. Follow these instructions along with Activity/Diet recommendations noted above: * Do NOT do anything where dizziness or clumsiness would be dangerous. * Rest quietly at home today, then you can be up and about tomorrow. * Have a responsible person stay with you the rest of today. * You may have had an I.V. today. If so, you may take the dressing off later today. Recommendations Call your doctor if: * Trouble breathing * Continuous vomiting for more than 24 hours * Temperature above 101 degrees * Severe abdominal pain or bloating * Pain not relieved by pain medicine ordered * There is increased drainage or redness from any incision * A large amount of rectal bleeding greater than 2-3 tablespoons. (If you had a polyp/s removed or have hemorrhoids, a small amount of blood - from the rectum is to be expected.) * You have any unanswered questions or concerns. IN THE EVENT OF A SERIOUS EMERGENCY, GO TO THE NEAREST EMERGENCY ROOM Your discharge instructions were prepared by provider Omega Wise. Patient Instructions Signature Page Blanche Padilla Patient (or Guardian) Signature/Date: I have read and understand the instructions given to me by my caregivers. Caregiver/RN/Doctor Signature/Date: The above-named patient and/or guardian has received patient instructions on this date. + Original Patient Signature Page (only) stays with chart. Please make copy for patient.
[2017-09-05 08:55] VITALS: BP_SYST 103; BP_SYST 114; BP_DIAS 59; BP_DIAS 61; PULSE 61; TEMP 36.7; O2SAT 98
[2017-09-05 09:25] VITALS: BP 114/61; PULSE 55; O2SAT 100
== END | disposition home or self-care (01) ==
LOC: C.ACU 05:27
PROVIDERS: ATTEND Internal Medicine
DX: K31.1 Adult hypertrophic pyloric stenosis (principal); K20.9 Esophagitis, unspecified; K21.9 Gastro-esophageal reflux disease without esophagitis; Z86.19 Personal history of other infectious and parasitic diseases; Z90.89 Acquired absence of other organs; Z98.51 Tubal ligation status; Z87.891 Personal history of nicotine dependence

== ENCOUNTER → 2017-09-23 | Day surgery (SDC) | payer OTHER ==
[2017-09-20 14:00] VITALS: BMI 22.0
[2017-09-20 14:32] VITALS: Ht 165.1 cm; Wt 60.0 kg
[~2017-09-23] VITALS: Ht 165.1 cm; Wt 60.0 kg
[~2017-09-23] MED LIST changes: -FENTANYL CITRATE INJ 50 MCG/1 ML 2 ML VIAL IV PRN; +LACTATED RINGER'S 1000ML 1,000 ML IV SCH; +MIDAZOLAM HCL 1 MG/ML 2ML VIAL ONE; -ONDANSETRON INJ 2 MG/ML 2 ML VIAL IV PRN; -ROCURONIUM BROMIDE 10 MG/ML 5 ML VIAL IV ONE; -SUCCINYLCHOLINE CHLORIDE 20 MG/ML 10 ML VIAL IV ONE
[2017-09-23 06:33] VITALS: BP 91/56; PULSE 60; TEMP 36.6; O2SAT 95
--- NOTE | 2017-09-23 07:23 | Endo History and Physical ---
History & Physical Date of Service: Sep 23, 2017. Chief Complaint: Pyloric Stenosis Referring Physician: Dr. Langston History of Present Illness 52 yo CF who presents for EGD with dilation of pylorus secondary to pyloric stenosis. Past Medical History Gastrointestinal Disorder Past Surgical History Hx Cardiac Surgery: No Hx Internal Defibrillator: No Hx Pacemaker: No Hx Abdominal Surgery: Yes (APPENDECTOMY,TUBAL) Hx of Implantable Prosthesis: No Hx Post-Op Nausea and Vomiting: No Hx Cancer Surgery: No Hx Thoracic Surgery: No Hx Orthopedic: No Hx Urinary Tract Surgery: No Family History None Social History Smoking Status: Former Smoker Hx Substance Use: No Hx Alcohol Use: No Allergies Coded Allergies: No Known Allergies (Verified , 09/23/17) Current Medications Reported Home Medications Medications Dose Route/Sig Max Daily Dose Days Date Category Protonix (Pantoprazole Sodium) 40 Mg Tab 40 Mg PO BID 07/26/17 Reported Zantac (Ranitidine HCl) 150 Mg Tab 150 Mg PO DAILY PRN 07/26/17 Reported Carafate (Sucralfate) 1 Gm Tab 1 Tab PO QID 30 07/20/17 Reported Vital Signs Weight (Kilograms): 60.00 Height (Feet): 5 Height (Inches): 5 Date Time Temp Pulse Resp B/P (MAP) Pulse Ox O2 Delivery O2 Flow Rate FiO2 09/23/17 06:33 36.6 60 18 91/56 (68) 95 Room Air Physical Exam General Appearance: WD/WN, no apparent distress Respiratory/Chest: Auscultation: breath sounds normal Cardiovascular: Heart Auscultation: RRR Abdomen: Bowel Sounds: normal Inspection & Palpation: soft, non-distended, no tenderness, guarding & rebound Assessment and Plan Assessment: 52 yo CF who presents for EGD with dilation of pylorus secondary to pyloric stenosis. Plan: Proceed with EGD.
--- NOTE | 2017-09-23 08:01 | [facility] Post Operative Brief Note ---
Immediate Operative Summary Operative Date Sep 23, 2017. Pre-Operative Diagnosis Pyloric stenosis. Post-Operative Diagnosis Pyloric stenosis s/p dilation Gastritis s/p biopsies Esophagitis Procedure(s) Performed Esophagogastroduodenoscopy with Dilation Surgeon Dr. WiseBridge Club Manager Surgeon(s) None Estimated Blood Loss 5 ml Findings Pyloric stenosis s/p dilation Gastritis s/p biopsies Esophagitis Specimens In care of Endoscopy staff. Anesthesia General Complication(s) None Disposition Recovery Room / PACU
--- NOTE | 2017-09-23 08:15 | GI REPORT ---
Patient Name: Blanche Padilla Procedure Date: 09/23/2017 7:26 AM Date of : 1965 Admit Type: Outpatient Age: 52 Gender: Female Attending MD: Omega Wise DO Procedure: Upper GI endoscopy Providers: Omega Wise DO Referring MD: Enzo Langston Indications: For therapy of pyloric stenosis Medicines: General Anesthesia Complications: No immediate complications. Estimated Blood Loss: Estimated blood loss: none. Estimated blood loss was minimal. Procedure: Pre-Anesthesia Assessment: - Prior to the procedure, a History and Physical was performed, and patient medications and allergies were reviewed. The patient's tolerance of previous anesthesia was also reviewed. The risks and benefits of the procedure and the sedation options and risks were discussed with the patient. All questions were answered, and informed consent was obtained. Prior Anticoagulants: The patient has taken no previous anticoagulant or antiplatelet agents. ASA Grade Assessment: II - A patient with mild systemic disease. After reviewing the risks and benefits, the patient was deemed in satisfactory condition to undergo the procedure. After obtaining informed consent, the endoscope was passed under direct vision. Throughout the procedure, the patient's blood pressure, pulse, and oxygen saturations were monitored continuously. The Scope was introduced through the mouth, and advanced to the second part of duodenum. The upper GI endoscopy was accomplished without difficulty. The patient tolerated the procedure well. Findings: Moderately severe esophagitis with no bleeding was found. A medium amount of food (residue) was found on the greater curvature of the stomach. Localized mild inflammation characterized by erythema was found in the gastric antrum. Biopsies were taken with a cold forceps for histology. A benign-appearing, intrinsic moderate stenosis was found at the pylorus. This was traversed. A TTS dilator was passed through the scope. Dilation with a 12-13.5-15 mm and a 15-16.5-18 mm pyloric balloon dilator was performed. The dilation site was examined and showed moderate improvement in luminal narrowing. The examined duodenum was normal. Impression: - Moderately severe reflux esophagitis. - A medium amount of food (residue) in the stomach. - Gastritis. Biopsied. - Gastric stenosis was found at the pylorus. Dilated. - Normal examined duodenum. Recommendation: - Resume previous diet. - Continue present medications. - Await pathology results. - Refer to a surgeon at appointment to be scheduled. Omega Wise, DO 09/23/2017 8:15:01 AM This report has been signed electronically. Note Initiated On: 09/23/2017 7:26 AM Number of Addenda: 0 I attest to the content of the Intraoperative Record and orders documented therein, exceptions below {[id number]}
--- NOTE | 2017-09-23 08:19 | Discharge Instructions ---
Endoscopy Patient Instructions Date / Procedure(s) Performed Sep 23, 2017. EGD Allergy Information Coded Allergies: No Known Allergies (Verified , 09/23/17) Discharge Date / Findings Sep 23, 2017. Esophagitis Gastritis s/p biopsies Pyloric stenosis s/p dilation Medication Instructions OK to resume all medications today as prescribed Reported Home Medications Medications Dose Route/Sig Max Daily Dose Days Date Category Protonix (Pantoprazole Sodium) 40 Mg Tab 40 Mg PO BID 07/26/17 Reported Zantac (Ranitidine HCl) 150 Mg Tab 150 Mg PO DAILY PRN 07/26/17 Reported Carafate (Sucralfate) 1 Gm Tab 1 Tab PO QID 30 07/20/17 Reported Provider Instructions Activity Restrictions - No exercising or heavy lifting for 24 hours. - Do not drink alcohol the day of the procedure. - Do not drive a car or operate machinery until the day after the procedure. - Do not make any important decisions or sign important papers in 24 hours after the procedure. Following Day: - Return to full activity which may include returning to work/school. Diet Start your diet with liquids and light foods (jello, soup, juice, toast). Then eat your usual diet if not nauseated. Treatment For Common After Affects For mild abdominal pain, bloating, or excessive gas: - Rest - Eat lightly - Lie on right side Follow-Up Information Follow-up with as scheduled Anesthesia Information What You Should Know You have had a procedure that required some medicine to reduce anxiety and discomfort. This treatment is called moderate sedation. After receiving the treatment, you may be sleepy, but you will be able to breathe on your own. The effects of the treatment may last for several hours. Follow these instructions along with Activity/Diet recommendations noted above: * Do NOT do anything where dizziness or clumsiness would be dangerous. * Rest quietly at home today, then you can be up and about tomorrow. * Have a responsible person stay with you the rest of today. * You may have had an I.V. today. If so, you may take the dressing off later today. Recommendations Call your doctor if: * Trouble breathing * Continuous vomiting for more than 24 hours * Temperature above 101 degrees * Severe abdominal pain or bloating * Pain not relieved by pain medicine ordered * There is increased drainage or redness from any incision * A large amount of rectal bleeding greater than 2-3 tablespoons. (If you had a polyp/s removed or have hemorrhoids, a small amount of blood - from the rectum is to be expected.) * You have any unanswered questions or concerns. IN THE EVENT OF A SERIOUS EMERGENCY, GO TO THE NEAREST EMERGENCY ROOM Your discharge instructions were prepared by provider Omega Wise. Patient Instructions Signature Page Blanche Padilla Patient (or Guardian) Signature/Date: I have read and understand the instructions given to me by my caregivers. Caregiver/RN/Doctor Signature/Date: The above-named patient and/or guardian has received patient instructions on this date. + Original Patient Signature Page (only) stays with chart. Please make copy for patient.
[2017-09-23 09:00] VITALS: BP 91/52; PULSE 54; TEMP 36.8; O2SAT 97
--- NOTE | 2017-09-23 09:26 | Anesthesiology Progress Note ---
Anesthesia Post Op Note Date & Time Sep 23, 2017 at 09:25 Vital Signs Pain Intensity: 0 Vital Signs Past 12 Hours Date Time Temp Pulse Resp B/P (MAP) Pulse Ox O2 Delivery O2 Flow Rate FiO2 09/23/17 09:00 36.8 54 16 91/52 97 Room Air 09/23/17 08:50 69 14 94/53 94 Room Air 09/23/17 08:40 36.4 64 16 99/70 96 Room Air 09/23/17 08:30 64 16 108/65 100 Oxymask 10 09/23/17 08:20 67 16 94/61 100 Oxymask 10 09/23/17 08:13 36.1 74 16 103/63 100 Oxymask 10 09/23/17 06:33 36.6 60 18 91/56 (68) 95 Room Air Notes Mental Status: alert / awake / arousable, participated in evaluation Pt Amnestic to Procedure: Yes Nausea / Vomiting: adequately controlled Pain: adequately controlled Airway Patency, RR, SpO2: stable & adequate BP & HR: stable & adequate Hydration State: stable & adequate Anesthetic Complications: no major complications apparent
[2017-09-23 09:35] VITALS: BP 112/63; PULSE 67; TEMP 36.6; O2SAT 97
== END | disposition home or self-care (01) ==
LOC: C.ACU 05:51
PROVIDERS: ATTEND Internal Medicine
DX: K31.1 Adult hypertrophic pyloric stenosis (principal); K21.0 Gastro-esophageal reflux disease with esophagitis; Z90.89 Acquired absence of other organs; Z87.891 Personal history of nicotine dependence

== ENCOUNTER → 2017-10-14 | Outpatient (CLI) | payer OTHER ==
[~2017-10-14] MED LIST changes: -ATROPINE SULFATE 0.1 MG/ML 5ML SYR IV PRN; -DEXAMETHASONE SOD INJ 4 MG/ML VIAL ONE; -EpHEDrine SULFATE INJ 50 MG/ML AMP IV PRN; -FENTANYL CITRATE INJ 50 MCG/1 ML 2 ML VIAL ONE; -LACTATED RINGER'S 1000ML 1,000 ML IV SCH; -LIDOCAINE HCL 2% 2 ML VIAL (20MG/ML) ONE; -MIDAZOLAM HCL 1 MG/ML 2ML VIAL ONE; -ONDANSETRON INJ 2 MG/ML 2 ML VIAL ONE; -PROPOFOL IV EMULSION 10 MG/ML 20 ML VIAL IV ONE; -SODIUM CHLORIDE 0.9% 500ML 500 ML IV ONE
--- NOTE | 2017-10-14 08:39 | DIAGNOSTIC IMAGING REPORT ---
GI SERIES W/AIR ROUTINE CLINICAL HISTORY: K31.1 Pyloric stenosis [id number] COMPARISON STUDY: Abdomen and pelvis CT 07/21/2017. FLUOROSCOPY TIME: 3.1 minutes.. FINDINGS: 19 fluoroscopic spot images. The patient swallowed barium without difficulty. Esophagus is normal in course, caliber, motility. No hiatus hernia. No gastroesophageal reflux. The stomach is normally distensible. The duodenal bulb and duodenal C sweep appear to be within normal limits. The pyloric channel appears to be slightly narrowed. However, contrast extends into the duodenum during the examination. IMPRESSION: 1. The pylorus appears to be slightly narrowed. No evidence for obstruction. 2. Otherwise normal upper GI series. Electronically signed by: Lalit Martin M.D. 10/14/2017 8:37 AM Dictated Date/Time: 10/14/2017 8:32 AM
[2017-10-14 09:43] LABS: BASO % 0.8 %; BASO ABS # 0.03 K/uL (0-0.2); EOS ABS # 0.08 K/uL (0-0.5); HEMATOCRIT 36.4 % (37-47); HEMOGLOBIN 11.6 g/dL (12.0-16.0); IG# 0.01 K/uL (0.00-0.02); LYMPH % 34.5 %; LYMPH ABS # 1.38 K/uL (1.2-3.4); MEAN CELL VOLUME 92.4 fL (80-100); MEAN CORPUSCULAR HEMOGLOBIN 29.4 pg (25-34); MEAN CORPUSCULAR HGB CONC 31.9 g/dl (32-36); MEAN PLATELET VOLUME 9.3 fL (7.4-10.4); MONO % 8.3 %; MONO ABS # 0.33 K/uL (0.11-0.59); NEUT % 54.1 %; NEUT ABS # 2.17 K/uL (1.4-6.5); PLATELET COUNT 364 K/uL (130-400); RED CELL DISTRIBUTION WIDTH CV 13.2 % (11.5-14.5); RED CELL DISTRIBUTION WIDTH SD 44.5 fL (36.4-46.3)
[2017-10-14 10:03] LABS: ALBUMIN 3.4 gm/dl (3.4-5.0); ALKALINE PHOSPHATASE 128 U/L (45-117); ALT/SGPT 34 U/L (12-78); AST/SGOT 24 U/L (15-37); BLOOD UREA NITROGEN 16 mg/dl (7-18); CALCIUM 9.5 mg/dl (8.5-10.1); CARBON DIOXIDE 29 mmol/L (21-32); CREATININE 0.83 mg/dl (0.60-1.20); GLUCOSE 91 mg/dl (70-99); POTASSIUM 4.3 mmol/L (3.5-5.1); SODIUM 140 mmol/L (136-145); TOTAL PROTEIN 7.2 gm/dl (6.4-8.2)
== END | disposition home or self-care (01) ==
LOC: C.RAD 07:31
PROVIDERS: ATTEND Surgery
DX: K31.1 Adult hypertrophic pyloric stenosis (principal)